=== PATIENT | female | born 1995 | race Caucasian/White ===

== ENCOUNTER 2018-06-06 17:11 | Emergency (ER) | payer MEDICAID ==
[~2018-06-06] VITALS: Wt 71.0 kg
[~2018-06-06 17:11] MED LIST: PREN1TAB17 PO
[2018-06-06 17:24] VITALS: BP 163/86; PULSE 84; RESP 16
--- NOTE | 2018-06-06 19:10 | ERD ---
ER Documentation Chief Complaint Chief Complaint HEADACHE, DIZZINESS, NUMBNESS THIS MORNING, NO WEAKNESS HPI 22-year-old female presents with complaints of left arm numbness and left side headache. States that at approximately 2:30 PM today her left arm went numb and she was unable to move it. States that the same time side of her head started hurting and she began having blurry vision the right eye. Symptoms lasted for proximally 5 minutes and then went away. Currently denies weakness or numbness, but does state she still has headache which she describes as 6 out of 10 in pain. Denies worse headache of life, syncope, fevers, present numbness weakness or tingling. Denies past medical history. Denies allergies. Denies medications. Denies surgeries. Denies alcohol, tobacco, drug use. Up to date on vaccines. ROS All systems reviewed and are negative except as per history of present illness. Medications Home Meds Active Scripts Ibuprofen* (Motrin*) 600 Mg Tab, 600 MG PO Q6 for pain, #30 TAB Prov:GEETACARLEYELENA 06/06/18 Reported Medications Vit-Iron Fumarate-FA ( Tablet) 1 Each Tablet, 1 EACH PO DAILY 01/09/13 Allergies Allergies: Coded Allergies: No Known Allergy (Unverified , 01/09/13) PMhx/Soc History of Surgery: No Anesthesia Reaction: No Hx Neurological Disorder: No Hx Respiratory Disorders: No Hx Cardiac Disorders: No Hx Psychiatric Problems: No Hx Miscellaneous Medical Probl: No Hx Alcohol Use: No Hx Substance Use: No Hx Tobacco Use: No Smoking Status: Never smoker FmHx Family History: diabetes; No coronary disease, No other Physical Exam Vitals Vital Signs Date Temp Pulse Resp B/P (MAP) Pulse Ox O2 O2 Flow FiO2 Time Delivery Rate 06/06/18 98.7 84 16 163/86 100 17:24 (111) Physical Exam Const: No acute distress Head: Atraumatic Eyes: Normal Conjunctiva ENT: Normal External Ears, Nose and Mouth. Neck: Full range of motion. No meningismus. Resp: Clear to auscultation bilaterally Cardio: Regular rate and rhythm, no murmurs Abd: Soft, non tender, non distended. Normal bowel sounds Skin: No petechiae or rashes Back: No midline or flank tenderness Ext: No cyanosis, or edema Neur: Awake and alert Psych: Normal Mood and Affect Result Diagram: 1/8/19 1905 1/8/19 1905 Results 24 hrs Laboratory Tests Test 06/06/18 18:58 06/06/18 19:05 POC Beta HCG, Qualitative NEGATIVE White Blood Count 8.0 10^3/ul Red Blood Count 4.72 10^6/ul Hemoglobin 14.5 g/dl Hematocrit 43.0 % Mean Corpuscular Volume 91.1 fl Mean Corpuscular Hemoglobin 30.7 pg Mean Corpuscular Hemoglobin Concent 33.7 g/dl Red Cell Distribution Width 11.9 % Platelet Count 238 10^3/UL Mean Platelet Volume 11.0 fl Immature Granulocytes % 0.400 % Neutrophils % 57.0 % Lymphocytes % 33.7 % Monocytes % 7.0 % Eosinophils % 1.4 % Basophils % 0.5 % Nucleated Red Blood Cells % 0.0 /100WBC Immature Granulocytes # 0.030 10^3/ul Neutrophils # 4.6 10^3/ul Lymphocytes # 2.7 10^3/ul Monocytes # 0.6 10^3/ul Eosinophils # 0.1 10^3/ul Basophils # 0.0 10^3/ul Nucleated Red Blood Cells # 0.0 10^3/ul Sodium Level 141 mmol/L Potassium Level 3.8 mmol/L Chloride Level 104 mmol/L Carbon Dioxide Level 27 mmol/L Anion Gap 10 Blood Urea Nitrogen 12 mg/dl Creatinine 0.72 mg/dl Est Glomerular Filtrat Rate mL/min > 60 mL/min Glucose Level 92 mg/dl Calcium Level 9.4 mg/dl Total Bilirubin 0.3 mg/dl Direct Bilirubin 0.00 mg/dl Indirect Bilirubin 0.3 mg/dl Aspartate Amino Transf (AST/SGOT) 22 IU/L Alanine Aminotransferase (ALT/SGPT) 36 IU/L Alkaline Phosphatase 78 IU/L Total Protein 8.1 g/dl Albumin 4.6 g/dl Globulin 3.50 g/dl Albumin/Globulin Ratio 1.31 Procedures/MDM DIAGNOSTIC IMAGING REPORT Patient: JAHAIRA JAIN : 1995 Age: 22 Sex: F MR #: [id number] DOS: 06/06/18 1845 Ordering MD: ELENA GR Location: [facility] Room/Bed: PROCEDURE: CT Brain without contrast. CLINICAL INDICATION: Headache. Numbness. TECHNIQUE: A CT of the brain was performed on a multidetector CT scanner utilizing axial imaging from the skull base through the vertex without IV contrast. Multiplanar reformatted images were made. Images were reviewed on a PACS workstation. The CTDIvol is the 40 mGy and the DLP is the 634 mGycm. DICOM images are available. One or more of the following dose reduction techniques were utilized: 1.) Automated exposure control 2.) Adjustment of the mA +/- kV according to patient's size 3.) Use of iterative reconstruction technique. COMPARISON: None FINDINGS: There is no intracranial hemorrhage, mass effect, or midline shift. No extra- axial fluid collection is seen. The ventricles and sulci are normal in size and configuration. The density of the brain is normal, and the faust white matter differentiation appears well-preserved. The visualized paranasal sinuses and osseous structures are grossly unremarkable. IMPRESSION: 1. No evidence of acute intracranial pathology. 2. The brain is normal in appearance. .Hardeep Carney MD, MD Date Time Electronically viewed and signed by .Hardeep Carney MD, MD on 06/06/2018 19:32 .A/ CC: ELENA GR [id number] ER Curse: Head CT, WN 22-year-old female presents with complaints of left arm numbness and left side headache. States that at approximately 2:30 PM today her left arm went numb and she was unable to move it. States that the same time side of her head started hurting and she began having blurry vision the right eye. Symptoms lasted for proximally 5 minutes and then went away. Currently denies weakness or numbness, but does state she still has headache which she describes as 6 out of 10 in pain. Denies worse headache of life, syncope, fevers, present numbness weakness or tingling. Due to patient's complaint of focal neurological deficits decision was made to order head CT. Results were within normal limits. Therefore I have low suspicion of CVA, intracranial mass, meningitis, or any other neurological pathology. Patient discharged with strict ER precautions. Patient advised to follow up with PMD. All questions answered at discharge. Departure Diagnosis: Primary Impression: Numbness Condition: Stable ELENA GR Jun 06, 2018 19:10
[2018-06-06] MEDS ORDERED: IBUP-1542 PO (20:38)
== END 2018-06-06 20:48 | disposition home or self-care (01) ==
LOC: FTE 17:11
DX: R20.0 Anesthesia of skin (principal)
CPT/HCPCS: 70450; 80053; 81025; 85025; Z7502

== ENCOUNTER 2018-11-13 16:20 | Emergency (ER) | payer MEDICAID ==
[~2018-11-13] VITALS: Ht 162.6 cm; Wt 69.9 kg
[~2018-11-13 16:20] MED LIST changes: +IBUP-1542 PO
[2018-11-13 16:43] VITALS: Ht 162.6 cm; Wt 69.9 kg
--- NOTE | 2018-11-13 18:18 | ERD ---
ER Documentation Chief Complaint Chief Complaint HEADACHE & VOMITTING X 1WK HPI 22-year-old female presents with complaint of headache and dizziness with associated vomiting for the past week. States that she is been getting a heada ronald every morning around 10 AM with an episode of what she describes as the room spinning and then she vomits and feels nauseous throughout the day. She does state that she has a history of headaches but lately it is been more frequent and her normal headaches are not associated with dizziness. States that she normally takes Excedrin for the headaches. Denies current headache. In addition she states that she is been having some visualizations of spots. Denies sudden onset, worse headache of life, fever, neck stiffness, rash, headache getting worse with change in position, headache initiated by exertion, AGUAYO worse in the morning, AGUAYO waking up patient at night, new neurological deficits, numbness, weakness, tenderness to palpation over temporal area, history of trauma, recent , or possibility of CO2 poisoning. Denies past medical history. Denies allergies. Denies surgeries. Nish alcohol, tobacco, drug use. Up to date on vaccines. ROS All systems reviewed and are negative except as per history of present illness. Medications Home Meds Active Scripts Ibuprofen* (Motrin*) 600 Mg Tab, 600 MG PO Q6 for pain, #30 TAB Prov:ELENA GR 06/06/18 Reported Medications Vit-Iron Fumarate-FA ( Tablet) 1 Each Tablet, 1 EACH PO DAILY 01/09/13 Allergies Allergies: Coded Allergies: No Known Allergy (Unverified , 01/09/13) PMhx/Soc History of Surgery: No Anesthesia Reaction: No Hx Neurological Disorder: No Hx Respiratory Disorders: No Hx Cardiac Disorders: No Hx Psychiatric Problems: No Hx Miscellaneous Medical Probl: No Hx Alcohol Use: No Hx Substance Use: No Hx Tobacco Use: No Smoking Status: Never smoker FmHx Family History: No diabetes, No coronary disease, No other Physical Exam Vitals Vital Signs Date Temp Pulse Resp B/P (MAP) Pulse Ox O2 O2 Flow FiO2 Time Delivery Rate 11/13/18 98.4 74 18 132/64 100 16:43 (86) Physical Exam Const: No acute distress Head: Atraumatic Eyes: Normal Conjunctiva ENT: Normal External Ears, Nose and Mouth. Neck: Full range of motion. No meningismus. Resp: Clear to auscultation bilaterally Cardio: Regular rate and rhythm, no murmurs Abd: Soft, non tender, non distended. Normal bowel sounds Skin: No petechiae or rashes Back: No midline or flank tenderness Ext: No cyanosis, or edema Neur: Awake and alert Psych: Normal Mood and Affect Neuro: M/S: Alert and oriented Face: EOMI, face and pharynx with normal sensation and function Motor: Normal strength throughout Sensation: Normal sensation throughout Speech: Normal Cerebel: Normal coordination Normal gait Normal finger to nose DTR: 2+ and symmetric upper/lower extremities Result Diagram: 11/13/18184811/13/181848 Results 24 hrs Laboratory Tests Test 11/13/18 18:49 11/13/18 18:59 White Blood Count 10.9 10^3/ul Red Blood Count 4.95 10^6/ul Hemoglobin 15.0 g/dl Hematocrit 44.7 % Mean Corpuscular Volume 90.3 fl Mean Corpuscular Hemoglobin 30.3 pg Mean Corpuscular Hemoglobin Concent 33.6 g/dl Red Cell Distribution Width 11.9 % Platelet Count 246 10^3/UL Mean Platelet Volume 11.3 fl Immature Granulocytes % 0.300 % Neutrophils % 81.8 % Lymphocytes % 12.5 % Monocytes % 5.0 % Eosinophils % 0.2 % Basophils % 0.2 % Nucleated Red Blood Cells % 0.0 /100WBC Immature Granulocytes # 0.030 10^3/ul Neutrophils # 8.9 10^3/ul Lymphocytes # 1.4 10^3/ul Monocytes # 0.6 10^3/ul Eosinophils # 0.0 10^3/ul Basophils # 0.0 10^3/ul Nucleated Red Blood Cells # 0.0 10^3/ul Sodium Level 140 mmol/L Potassium Level 4.6 mmol/L Chloride Level 102 mmol/L Carbon Dioxide Level 29 mmol/L Anion Gap 9 Blood Urea Nitrogen 9 mg/dl Creatinine 0.67 mg/dl Est Glomerular Filtrat Rate mL/min > 60 mL/min Glucose Level 106 mg/dl Calcium Level 9.7 mg/dl Total Bilirubin 1.2 mg/dl Direct Bilirubin 0.00 mg/dl Indirect Bilirubin 1.2 mg/dl Aspartate Amino Transf (AST/SGOT) 23 IU/L Alanine Aminotransferase (ALT/SGPT) 29 IU/L Alkaline Phosphatase 59 IU/L Total Protein 8.5 g/dl Albumin 4.7 g/dl Globulin 3.80 g/dl Albumin/Globulin Ratio 1.23 POC Beta HCG, Qualitative NEGATIVE Current Medications Medications Dose Sig/Lizbeth Start Time Status Last (Trade) Ordered Route PRN Stop Time Admin Dose Reason Admin Meclizine 25 mg ONCE ONCE 11/13/18 DC 11/13/18 HCl PO 18:30 19:18 (Antivert) 11/13/18 18:31 Procedures/MDM DIAGNOSTIC IMAGING REPORT Patient: JAHAIRA JAIN : 1995 Age: 22 Sex: F MR #: [id number] DOS: 11/13/18 1811 Ordering MD: ELENA GR Location: [facility] Room/Bed: PROCEDURE: CT Brain without contrast. CLINICAL INDICATION: dizinness + AGUAYO x1 week TECHNIQUE: A CT of the brain was performed from the skull base through the vertex without IV contrast. Multiplanar reformatted images were made. Images were reviewed on a PACS workstation. The CTDIvol is 39 mGy and the DLP is 634 mGycm. DICOM images are available. One or more of the following dose reduction techniques were utilized: 1.) Automated exposure control 2.) Adjustment of the mA +/- kV according to patient's size 3.) Use of iterative reconstruction technique. COMPARISON: 06/06/2018 FINDINGS: Brain: No acute intracranial findings. No mass, hemorrhage, or evidence of acute infarct. The ventricles are normal in size and configuration. Bones: The skull base and calvarium are normal in appearance. Orbits: Unremarkable Soft tissues: Unremarkable Paranasal sinuses: Visualized sinuses are clear. IMPRESSION: No acute intracranial findings. RPTAT:HCLE Physician Jin Date Time Electronically viewed and signed by Physician Jin on 11/13/2018 20:26 cE/ CC: ELENA GR [id number] MDM: Given patient's complaint of increasing headaches with associated dizziness, shared decision-making was used to decide whether she should get a CT or not. Patient stated that she would like a CT and I felt that given the patient's history and symptoms this was appropriate. Results of CT within normal limits. Patient given meclizine for dizziness. I have low suspicion for intracranial hemorrhage, elevated intracranial pressure, intracranial mass, aneurysm, meningitis, malignant hypertension, giant cell arteritis, carotid dissection, intracranial abscess, cerebral venous thrombosis, CO2 poisoning, or other emergent causes of headache based on patients history and exam. Patient discharged with strict ER precautions. Patient advised to follow up with PMD. All questions answered at discharge. Departure Diagnosis: Primary Impression: Headache Headache type: unspecified Headache chronicity pattern: episodic headache Intractability: not intractable Qualified Codes: R51 - Headache Additional Impression: Dizziness Condition: Stable ELENA GR Nov 13, 2018 18:18
[2018-11-13] MEDS ORDERED: MECLIZINE 12.5 MG TAB PO ONE (18:30)
[2018-11-13] MEDS ORDERED: MECL12.574 PO (20:33)
[2018-11-13 20:43] VITALS: BP 143/64; PULSE 69; RESP 18
== END 2018-11-13 20:43 | disposition home or self-care (01) ==
LOC: FTE 16:20
DX: R51 Headache (principal); R42 Dizziness and giddiness
CPT/HCPCS: 70450; 80053; 81025; 85025; Z7502; Z7610